=== PATIENT | male | born 1965 | race Caucasian/White ===

== ENCOUNTER 2019-04-14 08:44 | Day surgery (SDC) | payer OTHER ==
[~2019-04-14] VITALS: Ht 188 cm; Wt 114.7 kg
[~2019-04-14 08:44] MED LIST: CLON.5 PO; CODE30 PO; FLUO10; FLUO10 PO; Flomax0.4 MG PO; Halcion0.25 MG PO; IBUP800 PO; PROM25 PO; Percocet 5-3251 EACH PO
== END 2019-04-14 10:49 | disposition home or self-care (01) ==
LOC: ORSCSDS 08:44
PROVIDERS: Surgery
PROC: 0DBP8ZX Excision of Rectum, Via Natural or Artificial Opening Endoscopic, Diagnostic (ICD-10-PCS; principal; 2019-04-14 10:15)
DX: Z12.11 Encounter for screening for malignant neoplasm of colon (principal); K62.1 Rectal polyp; F41.9 Anxiety disorder, unspecified; Z79.899 Other long term (current) drug therapy
CPT/HCPCS: 88305; J2704; J7120

== ENCOUNTER → 2021-04-07 | Outpatient (CLI) | payer OTHER | END | disposition home or self-care (01) | LOC: LAB 16:42 → LAB SHORT 16:42 | DX: N39.0 Urinary tract infection, site not specified (principal) | CPT/HCPCS: 87086 ==

== ENCOUNTER → 2021-04-20 | Outpatient (CLI) | payer OTHER | END | disposition home or self-care (01) | LOC: LAB SHORT 17:41 → LAB 17:41 | DX: N39.0 Urinary tract infection, site not specified (principal) | CPT/HCPCS: 87086 ==

== ENCOUNTER → 2024-06-06 | Outpatient (CLI) | payer OTHER | LOC: LAB 11:58 → LAB SHORT 11:58 | DX: R30.0 Dysuria (principal) | CPT/HCPCS: 87086 ==